=== PATIENT | female | born 1980 | race Two or more races ===

== ENCOUNTER 2019-02-02 10:51 | Emergency (ER) | payer BC, OTHER ==
[~2019-02-02] VITALS: Ht 147.3 cm; Wt 70.3 kg
[2019-02-02 11:08] VITALS: BP 116/71
[2019-02-02] MEDS ORDERED: LIDOCAINE 1% HCL (LOCAL ANESTH.) INJ 20ML MDV IJ ONE (12:45)
[2019-02-02] MEDS ORDERED: TETANUS-DIPTH-ACEL PERTUSSIS 0.5ML SYRG IM ONE (13:00)
== END 2019-02-02 13:16 | disposition home or self-care (01) ==
LOC: ER 10:51
DX: S81.811A Laceration without foreign body, right lower leg, initial encounter (principal); W10.9XXA Fall (on) (from) unspecified stairs and steps, initial encounter; Y93.89 Activity, other specified; Y92.89 Other specified places as the place of occurrence of the external cause; Y99.8 Other external cause status
CPT/HCPCS: 12002; 90471; 90715; 99283; J2001